=== PATIENT | female | born 1980 | race Caucasian/White ===

== ENCOUNTER 2022-06-04 14:00 | Emergency (ER) | payer BC, SELFPAY ==
[2022-06-04] VITALS (18 sets, daily range): BP systolic 127–145; BP diastolic 83–97; PULSE 71–94; RESP 20; TEMP 36.9; O2SAT 99–100; BMI 29.5
--- NOTE | 2022-06-04 14:46 | ED_ITS ---
HPI - Chest Pain General Chief Complaint: Chest Pain Stated Complaint: sharp chest pain since last night Time Seen by Provider: 06/04/22 14:01 History of Present Illness HPI narrative: This 41-year-old female comes in reporting brief episodes of chest discomfort just left of the sternal border that began last night. She states she had multiple brief zingers of pain lasting about 2nd and then completely going away. She denies having any nausea, vomiting, lightheadedness, shortness of breath, or diaphoresis. These episodes occur when at rest and she does not report any exercise intolerance. She does report a history of Graves disease for which she did take a beta-christopher for a while but is no longer taking any medications for this. She does not have any cardiac risk factors. Related Data Home Medications Medication Instructions Recorded Confirmed No Known Home Medications 06/04/22 06/04/22 Allergies Allergy/AdvReac Type Severity Reaction Status Date / Time No Known Drug Allergies Allergy Verified 06/04/22 14:16 Review of Systems Status of ROS Reports: 10 or more systems reviewed and unremarkable except as noted in History and below Narrative Constitutional: No fevers, no weight gain or loss. Eyes: No discharge. No vision changes. HENT: No congestion, no sore throat, no ear pain. Cardiovascular: No palpitations. Brief recurrent episodes of pain lasting about 2nd and occurring just left of the sternal border. Respiratory: No shortness of breath, no wheezes, no cough. Gastrointestinal: No abdominal pain, no vomiting, no diarrhea. Genitourinary: No dysuria, no hematuria. Musculoskeletal: Normal range of motion. Skin: No rashes, no pruritis. Neurological: No dizziness, weakness, sensory change, speech change. Endo/Heme/Allergies: No bruising or bleeding. No polydipsia. Pysch: no suicidality, no anxiety, no insomnia. All other systems reviewed and are negative. PFSH PFS Social History Smoking Status: Never smoker Do you use any of these nicotine containing products: None and E-Cigarettes Second hand tobacco smoke exposure: No How often do you have a drink containing alcohol: 2-4 times a month How many standard drinks containing alcohol do you have on a typical day: 1 or 2 AUDIT-C Alcohol total score: 2 Non-prescribed substance use: denies use Exam Narrative Exam Narrative: Constitutional: Well-developed, well-nourished, no acute distress. HEENT: Normocephalic, atraumatic. Neck: Normal range of motion. Nontender. Supple. Heart: Regular. No murmurs. Normal rate. Intact distal pulses. Lungs: Clear to auscultation.No wheezes, rhonchi, or rales. Chest discomfort just left of the sternal border is not reproducible and currently there is no pain. Abdomen: Normal bowel sounds. Nontender. No rebound tenderness. Genitalia: Deferred. Back: No midline tenderness. Normal range of motion. Extremities: Normal range of motion. No injury. Skin: Intact. No rash. Warm. No erythema or pallor. Neurologic: No altered sensation. No weakness. Alert and oriented. Psychiatric: No suicidality. No anxiety or depression. No insomnia. Nursing notes and vitals signs are reviewed. Const Vital Signs, click to edit/add: Vital Signs - 24 hr 06/04/22 14:12 Temperature 98.4 F Pulse Rate [Pulse Oximeter] 83 Respiratory Rate 20 Blood Pressure [Left Upper Arm] 141/93 H Pulse Oximetry 100 Oxygen Delivery Method Room Air Course Vital Signs Vital signs: Initial Vital Signs Temperature 98.4 F 06/04/22 14:12 Temperature Source Temporal Artery Scan 06/04/22 14:12 Pulse Rate 83 06/04/22 14:12 Respiratory Rate 20 06/04/22 14:12 Blood Pressure 141/93 H 06/04/22 14:12 Blood Pressure Mean 109 06/04/22 14:12 Pulse Oximetry 100 06/04/22 14:12 Oxygen Delivery Method 06/04/22 14:12 Vital Signs Temperature 98.4 F 06/04/22 14:12 Pulse Rate 83 06/04/22 14:12 Respiratory Rate 20 06/04/22 14:12 Blood Pressure 141/93 H 06/04/22 14:12 Pulse Oximetry 100 06/04/22 14:12 Oxygen Delivery Method 06/04/22 14:12 Temperature 98.4 F 06/04/22 14:12 Pulse Rate 83 06/04/22 14:12 Respiratory Rate 20 06/04/22 14:12 Blood Pressure 141/93 H 06/04/22 14:12 Pulse Oximetry 100 06/04/22 14:12 Oxygen Delivery Method 06/04/22 14:12 MDM - Chest Pain MDM Narrative Medical decision making narrative: This patient comes in with very brief episodes of chest discomfort along the left sternal border. These symptoms last for about a 2nd man have been recurrent numerous times. Currently she is not having any pain. Her EKG appears normal. Lab results also returned in normal range including troponin, sed rate, and TSH. At the time of discharge the patient appears safe for outpa tient management. The treatment plan is reviewed along with written and verbal return precautions. Reasons to return and the importance of close followup were also reviewed. Lab Data Labs: Lab Results 06/04/22 06/04/22 06/04/22 Range/Units 15:02 15:02 15:02 WBC 7.53 (4.50-11.00) K/uL RBC 4.93 (4.00-5.20) m/uL Hgb 14.2 (12.0-16.0) gm/dL Hct 43.1 (33.0-51.0) % MCV 87 (80-100) fL MCH 29 (26-34) pg MCHC 33 (32-36) gm/dL RDW Coeff of Dung 12.7 (11.5-15.5) % Plt Count 332 (140-440) K/uL Neut % (Auto) 62.0 (42.0-72.0) % Lymph % (Auto) 28.4 (20-44) % [place] % (Auto) 7.6 (0.0-11.0) % Eos % (Auto) 0.7 (0.0-7.0) % Baso % (Auto) 0.4 (0.0-3.0) % Neut # (Auto) 4.67 (1.7-7.0) K/uL Lymph # (Auto) 2.14 (0.90-2.90) K/uL [place] # (Auto) 0.60 (0.00-0.90) K/UL Eos # (Auto) 0.05 (0.00-0.50) K/uL Baso # (Auto) 0.03 (0.00-0.30) K/uL ESR 7 (2-20) mm/hr Sodium 139 (135-149) mmol/L Potassium 4.2 (3.6-5.1) mmol/L Chloride 107 (96-114) mmol/L Carbon Dioxide 26 (20-32) mmol/L BUN 11 (5-24) mg/dL Creatinine 0.6 (0.5-1.5) mg/dL Estimated Creat Clear 112.15 Estimated GFR 116 ml/min Glucose 102 (60-115) mg/dL Calcium 9.7 (8.4-10.6) mg/dL TSH (0.270-4.20) uIU/mL POC Troponin I (0.01-0.04) ng/ml 06/04/22 06/04/22 Range/Units 15:02 15:02 WBC (4.50-11.00) K/uL RBC (4.00-5.20) m/uL Hgb (12.0-16.0) gm/dL Hct (33.0-51.0) % MCV (80-100) fL MCH (26-34) pg MCHC (32-36) gm/dL RDW Coeff of Dung (11.5-15.5) % Plt Count (140-440) K/uL Neut % (Auto) (42.0-72.0) % Lymph % (Auto) (20-44) % [place] % (Auto) (0.0-11.0) % Eos % (Auto) (0.0-7.0) % Baso % (Auto) (0.0-3.0) % Neut # (Auto) (1.7-7.0) K/uL Lymph # (Auto) (0.90-2.90) K/uL [place] # (Auto) (0.00-0.90) K/UL Eos # (Auto) (0.00-0.50) K/uL Baso # (Auto) (0.00-0.30) K/uL ESR (2-20) mm/hr Sodium (135-149) mmol/L Potassium (3.6-5.1) mmol/L Chloride (96-114) mmol/L Carbon Dioxide (20-32) mmol/L BUN (5-24) mg/dL Creatinine (0.5-1.5) mg/dL Estimated Creat Clear Estimated GFR ml/min Glucose (60-115) mg/dL Calcium (8.4-10.6) mg/dL TSH 1.210 (0.270-4.20) uIU/mL POC Troponin I 0.00 L (0.01-0.04) ng/ml ECG Data Attestation: I personally reviewed and interpreted this ECG as follows: Interpretation: Normal sinus rhythm. Rate is 83 beats per minute. There are no ST or T-wave abnormalities. Discharge Plan Discharge Clinical Impression: Chest wall pain Patient Disposition: Home, Self-Care Condition: Stable Additional Instructions: Continue current plans. Use [id number] medicines as needed and directed. Follow up with MD or return if worsening. Prescriptions: No Action No Known Home Medications Follow Up/Referrals: Debbie Betancourt MD [Primary Care Provider] - Stand Alone Forms: [employer] Info Instructions
[2022-06-04 15:14] LABS: Basophils Absolute Auto 0.03 K/uL (0.00-0.30); Basophils Percent Auto 0.4 % (0.0-3.0); Eosinophils Absolute Auto 0.05 K/uL (0.00-0.50); Eosinophils Percent Auto 0.7 % (0.0-7.0); Hematocrit 43.1 % (33.0-51.0); Hemoglobin* 14.2 gm/dL (12.0-16.0); Immature Granulocytes Abs Auto 0.07 K/uL (0.00-0.30); Immature Granulocytes Pct Auto 0.9 %; Lymphocytes Absolute Auto 2.14 K/uL (0.90-2.90); Lymphocytes Percent Auto 28.4 % (20-44); Mean Corpuscular HGB Conc 33 gm/dL (32-36); Mean Corpuscular Hemoglobin 29 pg (26-34); Mean Corpuscular Volume 87 fL (80-100); Monocytes Percent Auto 7.6 % (0.0-11.0); Neutrophils Absolute Auto 4.67 K/uL (1.7-7.0); Platelet Count* 332 K/uL (140-440); RDW Coefficient of Variation % 12.7 % (11.5-15.5); Red Blood Count 4.93 m/uL (4.00-5.20); White Blood Count* 7.53 K/uL (4.50-11.00)
[2022-06-04 15:19] LABS: Slide Review Reflex No
[2022-06-04 15:29] LABS: Chloride* 107 mmol/L (96-114)
[2022-06-04 15:30] LABS: Potassium* 4.2 mmol/L (3.6-5.1); Sodium* 139 mmol/L (135-149)
[2022-06-04 15:32] LABS: Creatinine* 0.6 mg/dL (0.5-1.5); Est. Creatinine Clearance* 112.15; Estimated Glomerular Filt Rate 116 ml/min
[2022-06-04 15:33] LABS: Blood Urea Nitrogen* 11 mg/dL (5-24); Calcium* 9.7 mg/dL (8.4-10.6); Carbon Dioxide* 26 mmol/L (20-32); Glucose* 102 mg/dL (60-115)
[2022-06-04 16:05] LABS: Erythrocyte SedimentationRate* 7 mm/hr (2-20)
== END 2022-06-04 16:43 | disposition home or self-care (01) ==
PROVIDERS: Emergency Provider Emergency Medicine Emergency Medical Services; PCP Family Medicine
DX: R07.89 Other chest pain (principal)
CPT/HCPCS: 36415; 80048; 84443; 84484; 85025; 85651; 93005; 99283; 99284

== ENCOUNTER 2022-08-19 15:49 | Emergency (ER) | payer BC, SELFPAY ==
[2022-08-19] VITALS (11 sets, daily range): BP systolic 132–149; BP diastolic 85–94; PULSE 72–95; RESP 16; TEMP 36.6; O2SAT 97–100
[2022-08-19 18:08] LABS: Basophils Absolute Auto 0.02 K/uL (0.00-0.30); Basophils Percent Auto 0.2 % (0.0-3.0); Eosinophils Absolute Auto 0.16 K/uL (0.00-0.50); Eosinophils Percent Auto 1.8 % (0.0-7.0); Hematocrit 41.4 % (33.0-51.0); Hemoglobin* 13.6 gm/dL (12.0-16.0); Immature Granulocytes Abs Auto 0.02 K/uL (0.00-0.30); Immature Granulocytes Pct Auto 0.2 %; Lymphocytes Absolute Auto 3.24 K/uL (0.90-2.90); Mean Corpuscular HGB Conc 33 gm/dL (32-36); Mean Corpuscular Hemoglobin 29 pg (26-34); Mean Corpuscular Volume 88 fL (80-100); Monocytes Percent Auto 8.9 % (0.0-11.0); Neutrophils Absolute Auto 4.54 K/uL (1.7-7.0); Neutrophils Percent Auto 51.9 % (42.0-72.0); Platelet Count* 315 K/uL (140-440); RDW Coefficient of Variation % 13.1 % (11.5-15.5); Red Blood Count 4.73 m/uL (4.00-5.20); White Blood Count* 8.76 K/uL (4.50-11.00)
[2022-08-19 18:24] LABS: Magnesium* 2.2 mg/dL (1.5-2.6)
[2022-08-19 18:26] LABS: Slide Review Reflex No
[2022-08-19 18:31] LABS: Chloride* 104 mmol/L (96-114); Sodium* 139 mmol/L (135-149)
[2022-08-19 18:32] LABS: Potassium* 3.9 mmol/L (3.6-5.1)
[2022-08-19 18:34] LABS: Creatinine* 0.7 mg/dL (0.5-1.5); Est. Creatinine Clearance* 95.17; Estimated Glomerular Filt Rate 111 ml/min
[2022-08-19 18:35] LABS: Blood Urea Nitrogen* 12 mg/dL (5-24); Carbon Dioxide* 28 mmol/L (20-32); Glucose* 99 mg/dL (60-115)
[2022-08-19 18:38] LABS: C Reactive Protein* 0.8 mg/dL (0.5-1.0)
[2022-08-19 18:56] LABS: Vitamin D 25 Hydroxy* 54 ng/mL (30-80)
--- NOTE | 2022-08-19 19:05 | ED_ITS ---
HPI - Arrhythmia/Palpitations General Chief Complaint: Arrhythmia/Palpitations Stated Complaint: Heart Palpations, Chest doesn't feel right Time Seen by Provider: 08/19/22 16:17 History of Present Illness HPI narrative: Pt c/o palpitations and tachycardia that started Monday night around 2014. Pt states her HR was 150 on apple watch and stayed there for thirty minutes. Since this occurred, pt has felt palpitations in left shoulder . Hx Graves disease. Pt took metoprolol last night ( old rx) without relief. 42-year-old woman presenting to the emergency department with concern of feeling of heart beating hard in her left chest that has persisted since episode of tachycardia measuring 150 on her Apple watch. She was there for about 30 minutes and then took another hour or so for her heart rate to come below 100 she says. This was around 8:15 p.m. 2 evenings ago. She does have a history of Graves disease decleared in ?remission? in she had some sort of arrhythmia around that time that prompted the evaluation and diagnosis of Graves. She did have tonsillitis 2 weeks ago and was treated with antibiotics. She has not been taking regular metoprolol any longer which had been around the active Graves and arrhythmia. She did yesterday then take 12.5 mg of metoprolol which finally seemed to bring her heart rate below 70 as she might expect it to normally be. Unclear if this is tartrate or succinate but split double presumably tartrate. No fever. No cough or cold symptoms. Outside of these episodes is not short of breath or having chest pain necessarily. She is not feeling lightheaded. Otherwise is under extreme stress in her social life including her being unwell. She does have lorazepam at home; but I am unaware that she tried that for this condition. Related Data Home Medications Medication Instructions Recorded Confirmed No Known Home Medications 06/04/22 08/19/22 Allergies Allergy/AdvReac Type Severity Reaction Status Date / Time Iodinated Contrast Media Allergy Mild Hives Verified 08/19/22 16:00 Review of Systems Status of ROS: Reports: 6 or more systems reviewed and unremarkable except as noted in History and below [facility] Social History Smoking Status: Never smoker Do you use any of these nicotine containing products: None Second hand tobacco smoke exposure: No How often do you have a drink containing alcohol: 2-4 times a month AUDIT-C Alcohol total score: 2 Non-prescribed substance use: denies use service: No Exam Narrative: Exam Narrative: Is pleasant. As begins talking about this becomes nearly tearful on numerous occasions. Becomes more tremulous at times. Generally tremulous. I received an EKG prior to going into the room Initial EKG reviewed by me EKG shows normal sinus 73 beats per minute. Is breathing easily at this time. Cranial nerves 2-12 intact. Moving all extremities without difficulty which are well perfused. Heart in regular rate and rhythm without murmur rub or gallop. Appears to be some thyroid fullness perhaps. Swallowing easily. There is no stridor. Trachea is midline. No apparent rashes. Const: Vital Signs, click to edit/add: Vital Signs - 24 hr 08/19/22 15:55 08/19/22 19:11 Temperature 97.9 F Pulse Rate 92 Pulse Rate [Pulse Oximeter] 92 Respiratory Rate 16 Blood Pressure [Le ft Upper Arm] 138/92 H Pulse Oximetry 99 99 Oxygen Delivery Mi thod Room Air Documenting provider has reviewed patient's vital signs: yes Course Vital Signs Vital signs: Initial Vital Signs Temperature 97.9 F 08/19/22 15:55 Temperature Source Temporal Artery Scan 08/19/22 15:55 Pulse Rate 92 08/19/22 15:55 Respiratory Rate 16 08/19/22 15:55 Blood Pressure 138/92 H 08/19/22 15:55 Blood Pressure Mean 107 H 08/19/22 15:55 Blood Pressure Position Supine 08/19/22 15:55 Pulse Oximetry 99 08/19/22 15:55 Oxygen Delivery Method Room Air 08/19/22 15:55 Vital Signs Temperature 97.9 F 08/19/22 15:55 Pulse Rate 92 08/19/22 15:55 Respiratory Rate 16 08/19/22 15:55 Blood Pressure 138/92 H 08/19/22 15:55 Pulse Oximetry 99 08/19/22 15:55 Oxygen Delivery Method Room Air 08/19/22 15:55 Temperature 97.9 F 08/19/22 15:55 Pulse Rate 92 08/19/22 19:11 Respiratory Rate 16 08/19/22 15:55 Blood Pressure 138/92 H 08/19/22 15:55 Pulse Oximetry 99 08/19/22 19:11 Oxygen Delivery Method Room Air 08/19/22 15:55 MDM - Arrhythmia/Palpitations MDM Narrative Medical decision making narrative: Has had some recent labs drawn for evaluation of Graves disease. Were able to determine what those are they are very thyroid specific and do include a TSH. These were drawn yesterday. I am not able to get these lab results at this time. Certainly possible that is having endocrine abnormality. Might be a primary tachycardia/dysrhythmia. I do think that understandable anxiety is exacerbating this. Is in a regular rate and rhythm at this time with discomfort is noted. I doubt ischemic cardiovascular disease. Denies any family history of arrhythmias/dysrhythmia. We tried to place an IV but has been difficult. Will draw labs that had not been done yesterday that might correlate to dysrhythmia. Will continue to monit or on medical officer for recurrence of arrhythmia here in the department. I did discuss potentially treating with anxiety lytic but she is more interested with knowing what is wrong. Or walking by her room I realize that was in tachycardia. Was reported to be tingly in her extremities as well. She acknowledges that this is related to hyperventilating we were observing. Heart rate was indeed in the 140s. Did look to be regular and a sinus tachycardia. I did evaluate EKG done at that time which was 124 in a sinus tachycardia. Sitting with her do apply some carotid massage and further conversation heart rate drops below 100. As far as the 80s. As became more upset and tremulous again would pop right back up into the low 1 teens and then settle down again. Colleague Dr. Luke is aware of the circumstances and has a relationship with Ms. Merrill. Has been visiting already with her. Will be assuming care at change of shift. Full labs are pending. Will be receiving metoprolol and lorazepam. Lab Data Attestation: I reviewed the patient's lab results. Labs: Lab Results 08/19/22 Range/Units 17:32 WBC 8.76 (4.50-11.00) K/uL RBC 4.73 (4.00-5.20) m/uL Hgb 13.6 (12.0-16.0) gm/dL Hct 41.4 (33.0-51.0) % MCV 88 (80-100) fL MCH 29 (26-34) pg MCHC 33 (32-36) gm/dL RDW Coeff of Dung 13.1 (11.5-15.5) % Plt Count 315 (140-440) K/uL Neut % (Auto) 51.9 (42.0-72.0) % Lymph % (Auto) 37.0 (20-44) % [place] % (Auto) 8.9 (0.0-11.0) % Eos % (Auto) 1.8 (0.0-7.0) % Baso % (Auto) 0.2 (0.0-3.0) % Neut # (Auto) 4.54 (1.7-7.0) K/uL Lymph # (Auto) 3.24 H (0.90-2.90) K/uL [place] # (Auto) 0.80 (0.00-0.90) K/UL Eos # (Auto) 0.16 (0.00-0.50) K/uL Baso # (Auto) 0.02 (0.00-0.30) K/uL Sodium 139 (135-149) mmol/L Potassium 3.9 (3.6-5.1) mmol/L Chloride 104 (96-114) mmol/L Carbon Dioxide 28 (20-32) mmol/L BUN 12 (5-24) mg/dL Creatinine 0.7 (0.5-1.5) mg/dL Estimated Creat Clear 95.17 Estimated GFR 111 ml/min Glucose 99 (60-115) mg/dL Calcium 9.0 (8.4-10.6) mg/dL Magnesium 2.2 (1.5-2.6) mg/dL C-Reactive Protein 0.8 (0.5-1.0) mg/dL 25-OH Vitamin D Total 54 (30-80) ng/mL Discharge Plan Discharge Clinical Impression: Other social stressor, Anxiety, Sinus tachycardia Prescriptions: No Action No Known Home Medications Follow Up/Referrals: Debbie Betancourt MD [Primary Care Provider] -
[2022-08-19] MEDS: LORazepam 0.5 MG TABLET PO (19:09)
[2022-08-19] MEDS: METOPROLOL TARTRATE 25 MG TABLET PO (19:09)
[2022-08-19 19:37] LABS: Free T4 Free Thyroxine* 1.11 ng/dL (0.70-1.85)
[2022-08-19 20:03] LABS: D Dimer Quantitative* 0.29 ug/ml (0.00-0.50)
--- NOTE | 2022-08-19 20:14 | CRLHL7_ITS ---
For Patients: As a result of the Century Cures Act, medical imaging exams and procedure reports are released immediately into your electronic medical record. You may view this report before your referring provider. If you have questions, please contact your health care provider. INDICATION: September 11, 2017. TECHNIQUE: Single view chest radiograph. INDICATION: Chest pain. FINDINGS: Stable cardiomediastinal contours. Clear lungs. No significant pleural effusion or pneumothorax. IMPRESSION: No acute cardiopulmonary abnormality. Dictated by Roberto Swain MD @ 08/19/2022 8:41:32 PM (Electronically Signed)
[2022-08-22 06:15] LABS: Free T3 3.5 pg/mL (2.5-4.3)
== END 2022-08-19 20:57 | disposition home or self-care (01) ==
PROVIDERS: Family Medicine; Emergency Provider Family Medicine; PCP Family Medicine
DX: R00.0 Tachycardia, unspecified (principal); F43.9 Reaction to severe stress, unspecified; F41.9 Anxiety disorder, unspecified
CPT/HCPCS: 36415; 71045; 80048; 82306; 83735; 84439; 84443; 84481; 85025; 85379; 86140; 93005; 99284; A9270

== ENCOUNTER 2023-09-02 13:32 | Emergency (ER) | payer BC, SELFPAY ==
[2023-09-02 13:34] VITALS: BP 146/95; PULSE 66; RESP 18; TEMP 36.4; O2SAT 97
--- NOTE | 2023-09-02 13:50 | ED_ITS ---
HPI - Wound/Laceration General Chief Complaint: Laceration/Wound Stated Complaint: L index finger lac Time Seen by Provider: 09/02/23 13:35 History of Present Illness HPI narrative: This 43-year-old female comes in with a laceration to the tip of her left index finger that continues to bleed. She was looking for scissors at home to open a package but used a serrated knife instead and accidentally caused a small laceration on the tip of her left index finger. Her tetanus status is u p-to-date. Related Data Home Medications Medication Instructions Recorded Confirmed No Known Home Medications 06/04/22 08/19/22 Allergies Allergy/AdvReac Type Severity Reaction Status Date / Time Iodinated Contrast Media Allergy Mild Hives Verified 08/19/22 16:00 Review of Systems Status of ROS: Reports: 10 or more systems reviewed and unremarkable except as noted in History and below Narrative: Constitutional: No fevers, no weight gain or loss. Eyes: No discharge. No vision changes. HENT: No congestion, no sore throat, no ear pain. Cardiovascular: No chest pain, no palpitations. Respiratory: No shortness of breath, no wheezes, no cough. Gastrointestinal: No abdominal pain, no vomiting, no diarrhea. Genitourinary: No dysuria, no hematuria. Musculoskeletal: Normal range of motion. Skin: No rashes, no pruritis. Neurological: No dizziness, weakness, sensory change, speech change. Endo/Heme/Allergies: No bruising or bleeding. No polydipsia. Pysch: no suicidality, no anxiety, no insomnia. All other systems reviewed and are negative. [facility] Social History Smoking Status: Never smoker Do you use any of these nicotine containing products: None Second hand tobacco smoke exposure: No How often do you have a drink containing alcohol: 2-4 times a month AUDIT-C Alcohol total score: 2 Non-prescribed substance use: denies use service: No Exam Narrative: Exam Narrative: Constitutional: Well-developed, well-nourished, no acute distress. HEENT: Normocephalic, atraumatic. Neck: Normal range of motion. Nontender. Supple. Heart: Intact distal pulses. Lungs: No chest discomfort. No wheezes, rhonchi, or rales. Abdomen: Nontender. Back: Normal range of motion. Extremities: Normal range of motion. Small linear laceration on the tip of the left index finger about 0.5 cm in length. It continues to bleed when direct pressure is removed. Skin: Intact. No rash. Warm. No erythema or pallor. Neurologic: No altered sensation. No weakness. Alert and oriented. Psychiatric: No suicidality. No anxiety or depression. No insomnia. Nursing notes and vitals signs are reviewed. Const: Vital Signs, click to edit/add: Vital Signs - 24 hr 09/02/23 13:34 Temperature 97.6 F Pulse Rate [Right Pulse Oximeter] 66 Respiratory Rate 18 Blood Pressure [Ri ght Upper Arm] 146/95 H Pulse Oximetry 97 Oxygen Delivery Me thod Room Air Course Vital Signs Vital signs: Initial Vital Signs Temperature 97.6 F 09/02/23 13:34 Temperature Source Temporal Artery Scan 09/02/23 13:34 Pulse Rate 66 09/02/23 13:34 Respiratory Rate 18 09/02/23 13:34 Blood Pressure 146/95 H 09/02/23 13:34 Blood Pressure Mean 112 H 09/02/23 13:34 Blood Pressure Position Sitting 09/02/23 13:34 Pulse Oximetry 97 09/02/23 13:34 Oxygen Delivery Method Room Air 09/02/23 13:34 Vital Signs Temperature 97.6 F 09/02/23 13:34 Pulse Rate 66 09/02/23 13:34 Respiratory Rate 18 09/02/23 13:34 Blood Pressure 146/95 H 09/02/23 13:34 Pulse Oximetry 97 09/02/23 13:34 Oxygen Delivery Method Room Air 09/02/23 13:34 Temperature 97.6 F 09/02/23 13:34 Pulse Rate 66 09/02/23 13:34 Respiratory Rate 18 09/02/23 13:34 Blood Pressure 146/95 H 09/02/23 13:34 Pulse Oximetry 97 09/02/23 13:34 Oxygen Delivery Method Room Air 09/02/23 13:34 MDM - Wound/Laceration MDM Narrative Medical decision making narrative: This patient has a laceration that continues to bleed. She is not on any anticoagulants. A ring exsanguinated ir is used to create a bloodless field. The wound was cleansed and Dermabond was applied followed by 2 bandages with some compression as they are applied. The ring was removed and instructions were given regarding wound care. Discharge Plan Discharge Clinical Impression: Laceration Patient Disposition: Home, Self-Care Condition: Improved Additional Instructions: Keep wound clean and dry. Follow up with MD or return if worsening. Prescriptions: No Action No Known Home Medications Follow Up/Referrals: Debbie Betancourt MD [Primary Care Provider] - Stand Alone Forms: [employer] Info Instructions
--- OUTSIDE RECORDS SUMMARY | 2023-09-02 14:00 | XMS_ITS | Continuity of Care Document ---
Author Name Unknown Organization [facility] Address [address], [address] [place] [address] Phone Care Team Providers Care Slate Trimmer Name Role Phone Unavailable Unavailable Unavailable Allergies, Adverse Reactions, Alerts Substance Reaction Status Criticality No Known Allergies Active No Inform ation Procedures Procedure Date PREV VISIT, NEW, AGE 18-39 Advance Directives Directive Yes / No Effective Date File Name No Information Encounters Encounter Description Practice Location Reason(s) For Visit Diagnoses Date Provider [facility], [address], [address], [place], [id number], tel:[phone] [employer] [facility] [address] No Information No Information PREV VISIT, NEW, AGE 18-39 [facility], [address], [address], [place], [id number], tel:[phone] [employer] [facility] [address] annual exam (chief complaint) ROUTINE ATHLETE MARKETING AGENT EXAMINATIONFamily history of breast cancerFamily history of cancer No Information Family History Family Member Type Diagnosis Age At Onset Mother Problem (finding) malignant neop lasm of breast in first degree relative (Cause Of ) 29 Father Problem (finding) prostate cancer Paternal aunt Problem (finding) cancer of colon Father Problem (finding) malignant neoplasm of b one Payers Payer name Insurance type Covered alliance party ID Authoriza tion(s) [facility] CI [id number] Social History Type Description Quantity Date Captured Comments Alcohol Use Details Unknown Caffeine Use Details Unknown Tobacco Use Status No Information Smoking Status No Information Sex Female Chief Complaint And Reason For Visit No Information Plan Of Treatment Date Type Action Status Referral Ordered: MAMMOGRAM SCREENING ordered History Of Present Illness Encounter Date Complaint History Of Prese nt Illness annual exam The patient stat es she uses withdrawal for control. Last LMP was 01/24/2014. Her menses is regular with normal flow with a frequency of every 28 days. Negative for dysmenorrhea and menorrhagia. Negative for: breast discharge, breast lump(s) and breast pain. Positive for: breast self exam. Pertinent negatives include abnormal bleeding, anxiety, depression, dyspareunia, urinary incontinence, urinary urgency, vaginal discharge and vaginal itching. The patient does not use tobacco. She does drink alcohol. Additional information: Mom dx'd brst CA age 29y, now , pt had mammo, wants genetic testing and mammo ref, dad has bone/prostate CA, aunt has colon CA. Instructions Date Instruction Additional Infor david mammo ref given, dis cussed Cathy testing for genetic cancers like brst and colon, pt to call rep and get cost info and then RTO for blood work Related to Family history of breast cancer Do SBE qmo, engage i n healthy habits such as proper eating and exercise Related to ROUTINE ATHLETE MARKETING AGENT EXAMINATION Assessments Type Assessment Date No Information
--- OUTSIDE RECORDS SUMMARY | 2023-09-02 14:00 | XMS_ITS | Clinical Summary ---
Author Name Unknown Organization [facility] Address [place], [place] [address] Care Team Providers Care Tan Room Supervisor Name Role Phone , Not On File Unavailable Unavailable Debbie Betancourt MD Primary Care Provider [phone] Allergies Active Allergy Reactions Criticality Noted Date Comments Gadobutrol Hives 04/02/2020 Pt took lorazapam right before MRI. Pt has had gadavist in past for head scan without issue but had hives all over body after MRI and gadavist injection. Iodinated Contrast Media Hives Low 08/19/2022 Medications Medication Sig Dispensed Refills Start Date End Date Status ascorbic acid, vitamin C, (VITAMIN C) 250 mg tablet Take 250 mg by mouth. Active L. acidophilus-L. rhamnosus (PROBIOTIC) 15 billion cell cap Take 1 Dose by mouth. Active Vctlx-6-NOD-EPA-Fi sh Oil 500-1,000 mg cap Take 1 Cap by mouth. Active cholecalciferol (VITAMIN D) 1,000 unit capsule Take 1 capsule by mouth once daily. 0 02/01/2019 Active turmeric/turmeric ext/pepr ext (turmeric-turmeric ext-pepper) 500-3 mg cap Take 2 Capsules by mouth once daily. 0 07/21/2022 Active LORazepam (ATIVAN) 0.5 mg tabIndications:Anx iety with flying Take 1 Tablet (0.5 mg) by mouth once daily if needed for Anxiety (30 minutes before flight. No driving or alcohol within 6 hours of dose). 6 Tablet 07/03/2023 Active metoprolol tartrate (LOPRESSOR) 25 mg tabletIndications: Sinus tachycardia Take 0.5 Tablets (12.5 mg) by mouth two times daily. 90 Tablet 3 08/09/2023 Active fluticasone (50 mcg per actuation) nasal solution (FLONASE)Indicatio ns:Chronic maxillary sinusitis Inhale 2 Sprays to both nostrils once daily. 48 mL 1 08/09/2023 Active azithromycin (Zithromax Z-Boom) 250 mg tabletIndications: Bronchitis with bronchospasm Take 500 mg (2 tabs) by mouth on day 1, then 250 mg (1 tab) daily for days 2-5. 6 Tablet 08/23/2023 Active metoprolol tartrate (LOPRESSOR) 25 mg tabletIndications: Sinus tachycardia Take 0.5 Tablets (12.5 mg) by mouth two times daily. 90 Tablet 08/23/2022 08/09/2023 Discontinue d(Reorder (E-cancel not sent)) fluticasone (50 mcg per actuation) nasal solution (FLONASE)Indicatio ns:Chronic maxillary sinusitis INHALE 2 SPRAYS TO BOTH NOSTRILS ONCE DAILY 48 mL 1 02/03/2023 08/09/2023 Discontinue d(Reorder (E-cancel not sent)) benzonatate (TESSALON) 200 mg capsuleIndications :Bronchospasm Take 1 Capsule (200 mg) by mouth 3 times daily if needed for Cough. 30 Capsule 05/31/2023 08/09/2023 Discontinue d(*Patient states no longer taking) azithromycin (ZITHROMAX) 250 mg tablet TAKE 2 TABLETS BY MOUTH TODAY, THEN TAKE 1 TABLET DAILY FOR 4 DAYS DIRECTED 07/02/2023 08/09/2023 Discontinue d(*Med complete/Re gimen complete/[place] of care change) albuterol HFA (PRO-AIR; VENTOLIN; PROVENTIL) 90 mcg/actuation inhalerIndications :Wheezing Inhale 1-2 Puffs by mouth every 4 hours if needed for Wheezing (Cough). 18 g 07/06/2023 08/09/2023 Discontinue d(*Patient states no longer taking) predniSONE (DELTASONE) 20 mg tabletIndications: Wheezing,Bronchiti s Take 1 Tablet (20 mg) by mouth once daily. 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 Family history of breast cancer in mother 2017 Encounters Date Type Department Care Team Description 08/25/2023 Orders Only [facility] [address] [facility] [address] [place] [address] Molly Freire NP <No scans attached> 08/25/2023 Telephone [facility] [address] [place] [address] Staff, Other Clinical 08/23/2023 Orders Only [facility] [address] [place] [address] Karli Ramos PA <No scans attached> 08/09/2023 3:15 PM CDT Office Visit [facility] [address] [place] [address] Debbie Betancourt MD Physical (43 year old) 08/09/2023 Travel 07/25/2023 3:45 PM CDT Office Visit [facility] [address] [place] [address] Catherine Jane PA Ear Problem (pain) 07/25/2023 Travel 07/06/2023 2:10 PM CDT Ancillary Procedure [address] [phone] 07/06/2023 12:30 PM CDT Office Visit [facility] [address] Minal Otero NP Sinus Infection (Patient presents to urgent care today with concerns about her sinus infection. She started antibiotics on 07/02/2023./) 07/06/2023 Travel from Last 3 Months Immunizations Name Administration Dates Next Due AMB Influenza, IIV4 PF (=>6 mos Flulaval,Fluzone Fluarix)(Flu Clinic Only) 01/28/2020 COVID-19 vaccine ([employer] 30mcg/0.3mL) PF, MDV 03/22/2021,07/15/2020,06/24/2020 Influenza, IIV4 02/23/2022,,01/07/2019, 018 Influenza, Whole Virus 01/26/2017 Influenza,LAIV4 Live Intrana camille (Flumist) 01/01/2016 Tdap 12/16/2015 Family History Medical History Relation Name Comments Cancer-prostate Father Cancer-breast Mother dx age 32 Cancer-colon Paternal Aunt dx age 40 Cancer No Family History Cancer-ovarian No Family History Relation Name Status Comments Father Alive Stage 4 Mother Paternal Aunt Paternal Uncle Alive Social History Tobacco Use Types Packs/Day Years Used Date Smoking Tobacco: Never Smokeless Tobacco: Never Tobacco Cessation:Counseling Given: Yes Alcohol Use Standard Drinks/Week Comments Yes 0 (1 standard drink = 0.6 oz pur e alcohol) very rarely PHQ-2 Answer Date Recorded PHQ-2 TOTAL SCORE 0 08/09/2023 Social Connections Answer Date Recorded Frequency of Communication with Friends and Fami ly 0 07/06/2023 Financial Resource Strain Answer Date R ecorded Difficulty of Paying Living Expenses 3 07/06/2023 Difficulty of Paying Living Expenses Not on file 07/06/2023 Food Insecurity Answer Date Recorded Worried About Running Out of Food in the Last Ye ar 1 07/06/2023 Transportation Needs Answer Date Record ed Lack of Transportation (Medical) 1 07/06/2023 Housing Stability Answer Date Recorded Unable to Pay for Housing in the Last Year 1 07/06/2023 Sex and Gender Information Value Date Recorded Sex Assigned at Not on file Gender Identity Not on file Sexual Orientation Not on file Obstetrics History Last Filed Vital Signs Vital Sign Reading Time Taken Comments Blood Pressure 128/86 08/09/2023 3:38 PM CDT Pulse 73 08/09/2023 3:38 PM CDT Temperature 36.3 ??C (97.4 ??F) 07/06/2023 1 2:59 PM CDT Respiratory Rate 16 07/06/2023 2:45 PM CDT Oxygen Saturation 99% 08/09/2023 3:38 PM CDT Inhaled Oxygen Concentration - - Weight 84.7 kg (186 lb 12.8 oz) 08/09/2023 3:38 PM CDT Height 163.4 cm (5' 4.33) 08/09/2023 3:38 PM CD T Body Mass Index 31.74 08/09/2023 3:38 PM CDT Plan of Treatment Upcoming Encounters Date Type Department Care Team (Late st Contact Info) Description 09/27/2023 11:30 AM CDT Office Visit [facility] [address] [place] [phone] Anoop Henry, Jose [address] [place] [address] 09/28/2023 10:00 AM CDT Office Visit [facility] [address] [place] [phone] Catherine Figueroa PA [address] [place] [address] Health Maintenance Due Date Last Done Comments HIV for age 15-65 1996 Hepatitis C screening for age 18-79 07/11/1999 COVID-19 vaccine series ( season) 2022 03/22/2021, 07/15/2020, 06/24/2020 Influenza for age 9-49 12/17/2023 , 02/03/2021, 01/28/2020, Additional history exists BMI (ht and wt on same day) for age 18+ 08/08/2024 08/09/2023, 07/21/2022, 06/14/2022, Additional history exists Depression screening for age 12+ 08/08/2024 08/09/2023, 06/14/2022, 06/14/2022, Additional history exists Tetanus booster 12/15/2025 12/16/2015 Pap test for age 21-65 05/05/2026 2, 05/05/2021, 12/01/2017 (Verified in Care Everywhere or Patient Record) Tdap Completed 12/16/2015 Pneumococcal series for age 6-64 Aged Out No longer eligible based on patient's age to complete this topic Procedures Procedure Name Priority Date/Time Associated Diagnosis Comments XR CHEST 2 VIEWS PA AND LATERAL STAT 07/06/2023 2:14 PM CDT Wheezing Persistent cough for 3 weeks or longer HPV THIN PREP Routine 05/05/2021 12:19 PM CERTIFIED PEDIATRIC NURSE PRACTITIONER Pap smear for cervical cancer screening from Last 3 Months or Most Recently Relevant to Health Maintenance Results * XR CHEST 2 VIEWS PA AND LATERAL (07/06/2023 2:14 PM CDT) Anatomical Region Laterality Modality CHEST, THORAX, Lung, HEART Compu mark Radiography 07/06/2023 2:56 PM CDT Impressions 07/06/2023 2:56 PM CDT No acute or significant findings. Dictated by Fernando Umana MD @ 07/06/2023 2:56:04 PM (Electronically Signed) Narrative 07/06/2023 2:56 PM CDT For Patients: ??As a result of the Cures Act, medical imaging exams and procedure reports are released immediately into your electronic medical record. ??You may view this report before your referring provider. ??If you have questions, please contact your health care provider. INDICATION: Wheezing. TECHNIQUE: Chest 2 views. COMPARISON: July 02, 2018. FINDINGS: Cardiovascular and mediastinum: ??Heart size and vasculature are normal in caliber and appearance. ?? Lungs and pleural spaces: ??Lungs are clear. ??No sign of infiltrate or mass. ??No sign of pleural effusion. ??No pneumothorax. ?? Bones and soft tissues: ??No significant findings. Procedure Note Fernando Umana MD - 07/06/2023 For Patients: As a result of the 21st Century Cures Act, medical imagingexams and procedure reports are released immediately into your electronicmedical record. You may view this report before your referring provider.If you have questions, please contact your health care provider. INDICATION: Wheezing. TECHNIQUE: Chest 2 views. COMPARISON: July 02, 2018. FINDINGS: Cardiovascular and mediastinum: Heart size and vasculature are normal incaliber and appearance. Lungs and pleural spaces: Lungs are clear. No sign of infiltrate ormass. No sign of pleural effusion. No pneumothorax. Bones and soft tissues: No significant findings. IMPRESSION: No acute or significant findings. Dictated by Fernando Umana MD @ 07/06/2023 2:56:04 PM (Electronically Signed) Minal Otero NP GENERAL IMAGING * HPV HIGH RISK (05/05/2021 12:19 PM CERTIFIED PEDIATRIC NURSE PRACTITIONER) TYPE 16 Negative Negative 05/07/2021 3:17 PM CERTIFIED PEDIATRIC NURSE PRACTITIONER [facility] TYPE 18 Negative Negative 05/07/2021 3:17 PM CERTIFIED PEDIATRIC NURSE PRACTITIONER [facility] OTHER HIGH RISK TYPES Negative Negative 05/07/2021 3:17 PM CERTIFIED PEDIATRIC NURSE PRACTITIONER [facility] Other (Cervical) Non-Blood / Unknown 05/05/2021 12:19 PM CERTIFIED PEDIATRIC NURSE PRACTITIONER 05/06/2021 8:40 AM CERTIFIED PEDIATRIC NURSE PRACTITIONER [facility]ative [facility] - 05/07/2021 3:17 PM CERTIFIED PEDIATRIC NURSE PRACTITIONER HPV types 16, 18, 31, 33, 35, 39, 45, 51, 52, 56, 58, 59, 66 and 68 DNA were undetectable or below the pre-set threshold. Methodology: Kiley Joel 4800 HPV Test Debbie Betancourt MD MICROBIOLOGY [facility] [address] [place] [address], [place] from Last 3 Months or Most Recently Relevant to Health Maintenance Care Teams Tan Room Supervisor Relationship Specialty Start Date End Date Debbie Betancourt MD [address] [place] [address] PCP - General Family Practice 04/18/18 , Not On File 05/13/15
== END 2023-09-02 13:59 | disposition home or self-care (01) ==
LOC: ED 13:58
PROVIDERS: Emergency Provider Emergency Medicine Emergency Medical Services; PCP Family Medicine
DX: S61.211A Laceration without foreign body of left index finger without damage to nail, initial encounter (principal); W26.0XXA Contact with knife, initial encounter
CPT/HCPCS: 12001; 99282; 99284

== ENCOUNTER 2024-11-06 12:02 | Emergency (ER) | payer BC, SELFPAY ==
--- OUTSIDE RECORDS SUMMARY | 2024-11-06 12:03 | XMS_ITS | Clinical Summary ---
Author Organization [facility] Address [address] [place] [address] Care Team Providers Care Mold Yard Crane Operator Name Role Phone , Not On File Unavailable Unavailable Debbie Betancourt MD Primary Care Provider Allergies Active Allergy Reactions Criticality Noted Date Comments Gadobutrol Hives 04/02/2020 Pt took lorazapam right before MRI. Pt has had gadavist in past for head scan without issue but had hives all over body after MRI and gadavist injection. Iodinated Contrast Media Hives Low 08/19/2022 Medications ascorbic acid, vitamin C, (VITAMIN C) 250 mg tablet Take 250 mg by mouth. Active L. acidophilus-L. rhamnosus (PROBIOTIC) 15 billion cell cap Take 1 Dose by mouth. Active Ofeki-4-UYB-EPA- Fish Oil 500-1,000 mg cap Take 1 Cap by mouth. Active cholecalciferol (VITAMIN D) 1,000 unit capsule Take 1 capsule by mouth once daily. 0 9 Active turmeric/turmeri c ext/pepr ext (turmeric-turmer ic ext-pepper) 500-3 mg cap Take 2 Capsules by mouth once daily. 0 3 Active fluticasone (50 mcg per actuation) nasal solution (FLONASE)Indicat ions:Chronic maxillary sinusitis Inhale 2 Sprays to both nostrils once daily. 48 mL 1 4 Active metoprolol tartrate (LOPRESSOR) 25 mg tabletIndication s:Sinus tachycardia Take 0.5 Tablets (12.5 mg) by mouth two times daily. 90 Tablet 3 4 Active benzonatate (TESSALON) 100 mg capsuleIndicatio ns:Influenza-lik e illness Take 1 Capsule (100 mg) by mouth 3 times daily if needed for Cough. 30 Capsule 5 Active albuterol HFA (ProAir HFA) 90 mcg/actuation inhalerIndicatio ns:Influenza-lik e illness,Wheezing Inhale 1-2 Puffs by mouth every 6 hours if needed for Shortness of Breath 1st choice. 1 Each 5 Active LORazepam (ATIVAN) 0.5 mg tabIndications:A nxiety with flying Take 1 Tablet (0.5 mg) by mouth once daily if needed for Anxiety (30 minutes before flight. No driving or alcohol within 6 hours of dose). 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 0 07/06/2023 Financial Resource Strain Answer Date R ecorded Difficulty of Paying Living Expenses 3 07/06/2023 Difficulty of Paying Living Expenses Not on file 07/06/2023 Food Insecurity Answer Date Recorded Do you worry your food will run out before you are able to buy more? 1 07/06/2023 Transportation Needs Answer Date Record ed Does lack of transportation keep you from medica l appointments? 1 07/06/2023 Does lack of transportation keep you from work, meetings or getting things that you need? 1 07/06/2023 Housing Stability Answer Date Recorded What is your housing situation today? 1 07/06/2023 Utilities Answer Date Recorded Do you have trouble paying f or utilities (for example, heat, electricity, water, phone)? 1 07/06/2023 Comments No Sex and Gender Information Value Date Recorded Sex Assigned at Not on file Legal Sex Female 8:26 AM FABRICATION LEAD Gender Identity Not on file Sexual Orientation Not on file Obstetrics History Last Filed Vital Signs Vital Sign Reading Time Taken Comments Blood Pressure 128/87 05/09/2024 9:27 AM FABRICATION LEAD Pulse 85 05/09/2024 9:27 AM FABRICATION LEAD Temperature 36.5 C (97.7 F) 05/09/2024 9:27 AM FABRICATION LEAD Respiratory Rate 18 02/22/2024 11:05 AM FABRICATION LEAD Oxygen Saturation 96% 05/09/2024 9:27 AM FABRICATION LEAD Inhaled Oxygen Concentration - - Weight 86.7 kg (191 lb 1.6 oz) 05/09/2024 9:27 A M FABRICATION LEAD Height 166.4 cm (5' 5.5) 02/22/2024 11:05 AM CS T Body Mass Index 31.32 02/22/2024 11:05 AM FABRICATION LEAD Plan of Treatment Health Maintenance Due Date Last Done Comments HIV for age 15-65 1996 Hepatitis C screening for age 18-79 07/11/1999 Hepatitis B series for 19+ (1 of 3 - 19+ 3-dose series) 2000 COVID-19 vaccine series (2023- season) 2023 03/22/2021, 07/15/2020, 06/24/2020 Depression screening for age 12+ 08/08/2024 08/09/2023, 06/14/2022, 06/14/2022, Additional history exists Influenza Vaccine (#1) 2024 2, 02/03/2021, 01/28/2020, Additional history exists BMI (ht and wt on same day) for age 18+ 02/21/2025 02/22/2024, 08/09/2023, 07/21/2022, Additional history exists Tetanus booster 12/15/2025 12/16/2015 Pap test for age 21-65 05/05/2026 , 05/05/2021, 12/01/2017 (Verified in Care Everywhere or Patient Record) Pneumococcal series for age 6-49 Aged Out No longer eligible based on patient's age to complete this topic Procedures Procedure Name Priority Date/Time Associated Diagnosis Comments HPV HIGH RISK Routine 05/05/2021 12:19 PM FABRICATION LEAD Pap smear for cervical cancer screening from Last 3 Months or Most Recently Relevant to Health Maintenance Results * HPV HIGH RISK (05/05/2021 12:19 PM FABRICATION LEAD) TYPE 16 Negative Negative 05/07/2021 3:17 PM FABRICATION LEAD [facility] TYPE 18 Negative Negative 05/07/2021 3:17 PM FABRICATION LEAD [facility] OTHER HIGH RISK TYPES Negative Negative 05/07/2021 3:17 PM FABRICATION LEAD [facility] Other (Cervical) Non-Blood / Unknown 05/05/2021 12:19 PM FABRICATION LEAD 05/06/2021 8:40 AM FABRICATION LEAD Narrative [facility] - 05/07/2021 3:17 PM FABRICATION LEAD HPV types 16, 18, 31, 33, 35, 39, 45, 51, 52, 56, 58, 59, 66 and 68 DNA were undetectable or below the pre-set threshold. Methodology: Kiley Joel 4800 HPV Test us Debbie Betancourt MD MICROBIOLOGY Final Resul t [facility] [address] [place] [address], from Last 3 Months or Most Recently Relevant to Health Maintenance Insurance [facility] Care Teams Mold Yard Crane Operator Relationship Specialty Start Date End Date Debbie Betancourt MD [address] [place] [id number] PCP - General Family Practice 04/18/18 , Not On File 05/13/15
[2024-11-06 12:05] VITALS: BP 143/97; PULSE 66; TEMP 36.4; O2SAT 98; BMI 30.8
--- NOTE | 2024-11-06 12:10 | CRLHL7_ITS ---
For Patients: As a result of the Cures Act, medical imaging exams and procedure reports are released immediately into your electronic medical record. You may view this report before your referring provider. If you have questions, please contact your health care provider. Indication: Fall, dislocation Comparison: None available. Technique: AP, lateral, and oblique views right 5th digit were obtained. Findings: There is no displaced fracture or dislocation. The joint spaces are grossly preserved. There is mild fusiform soft tissue swelling. Impression: Mild fusiform soft tissue swelling without evidence of displaced fracture. Dictated by Mehdi Villa MD @ 11/06/2024 1:02:24 PM (Electronically Signed)
--- NOTE | 2024-11-06 12:14 | ED.GENADULT ---
HPI - General Adult General Chief complaint: Extremity Pain/Injury, Upper Stated complaint: R finger injury Time Seen by Provider: 11/06/24 12:03 History of Present Illness HPI narrative: Patient is a 44-year-old female who slipped on a hardwood floor and injured her right little finger seems like it is at the tip of the finger. At her D IP joint. The patient also somewhat jammed her left shoulder but she is moving it fully without much discomfort she feels that is not worrisome at this time. She has demonstrates full range of motion as well. She has no headache neck pain back pain or other concerns. Related Data Home Medications ?Medication ?Instructions ?Recorded ?Confirmed No Known Home Medications 06/04/22 08/19/22 Allergies Allergy/AdvReac Type Severity Reaction Status Date / Time Iodinated Contrast Media Allergy Mild Hives Verified 08/19/22 16:00 Review of Systems Status of ROS: Reports: 6 or more systems reviewed and unremarkable except as noted in History and below PFSH PFS Social History Smoking Status: Never smoker Do you use any of these nicotine containing products: None Second hand tobacco smoke exposure: No How often do you have a drink containing alcohol: 2-4 times a month AUDIT-C Alcohol total score: 2 Non-prescribed substance use: denies use service: No Exam Narrative: Exam Narrative: Objective: Vital signs show slightly elevated blood pressure. Patient is in no marked distress but does report that it is painful. She is examined in the triage room She has full range of motion of her left shoulder she has a what appears to be mildly dislocated D IP joint with the distal component being dorsal. No open wounds are noted distal CMS is intact. Const: Vital Signs, click to edit/add: Vital Signs - 24 hr 11/06/24 12:05 Temperature 97.5 F L Pulse Rate [Pulse Oximeter] 66 Blood Pressure [Ri ght Upper Arm] 143/97 H Pulse Oximetry 98 Oxygen Delivery Me thod Room Air Course Vital Signs Vital signs: Initial Vital Signs Temperature 97.5 F L 11/06/24 12:05 Temperature Source Temporal Artery Scan 11/06/24 12:05 Pulse Rate 66 11/06/24 12:05 Blood Pressure 143/97 H 11/06/24 12:05 Blood Pressure Mean 112 H 11/06/24 12:05 Blood Pressure Position Sitting 11/06/24 12:05 Pulse Oximetry 98 11/06/24 12:05 Oxygen Delivery Method Room Air 11/06/24 12:05 Vital Signs Temperature 97.5 F L 11/06/24 12:05 Pulse Rate 66 11/06/24 12:05 Blood Pressure 143/97 H 11/06/24 12:05 Pulse Oximetry 98 11/06/24 12:05 Oxygen Delivery Method Room Air 11/06/24 12:05 Temperature 97.5 F L 11/06/24 12:05 Pulse Rate 66 11/06/24 12:05 Blood Pressure 143/97 H 11/06/24 12:05 Pulse Oximetry 98 11/06/24 12:05 Oxygen Delivery Method Room Air 11/06/24 12:05 Medications Administered Medications: Discontinued Medications Generic Name Dose Route Start Last Admin Trade Name Carlosq PRN Reason Stop Dose Admin Ibuprofen 800 mg 11/06/24 12:10 11/06/24 12:22 Ibuprofen 400 Mg Tablet PO 11/06/24 12:11 800 mg ONCE ONE Administration Medical Decision Making MDM Narrative Medical decision making narrative: 44-year-old female with a fall in a pot possibly dislocated distal D IP joint on the right 5th finger. Procedure: After discussing and examining the patient in triage room I was able to easily relocate the finger. She tolerated this very well. Was given ibuprofen. Will get an x-ray as well. Addendum 12:50 p.m.: The patient's x-ray shows relocation of her finger there was clearly a relocation clunk when I put it back in place. The patient tolerated this well she has no obvious fracture noted. Recommend the above-mentioned care. Follow up with regular doctor as needed, use the hand warm soapy water squeezing a sponge and other activities would be helpful, Advil as needed. Discharge Plan Discharge Clinical Impression: Dislocated finger Patient Disposition: Home, Self-Care Condition: Improved Additional Instructions: Ibuprofen as needed, ice to the area as needed 5-10 minutes for couple of days, gentle squeezing of a sponge in warm soapy water to be helpful. Juni tape if needed for increased activity. Recheck as needed. Activity Level: No Restrictions Activity Detail: Light use of the right hand for few days. Discharge Diet: Regular Prescriptions: No Action No Known Home Medications Follow Up/Referrals: Debbie Betancourt MD [Primary Care Provider, Family Practice] Stand Alone Forms: [employer] Info Instructions
[2024-11-06] MEDS: IBUPROFEN 400 MG TABLET 800 MG PO (12:22)
== END 2024-11-06 13:01 | disposition home or self-care (01) ==
LOC: ED 12:45
PROVIDERS: Emergency Provider Family Medicine; PCP Family Medicine
DX: S63.296A Dislocation of distal interphalangeal joint of right little finger, initial encounter (principal); W23.1XXA Caught, crushed, jammed, or pinched between stationary objects, initial encounter
CPT/HCPCS: 26770; 73140; 99283; A9270